=== PATIENT | female | born 1960 | race African-American/Black ===

== ENCOUNTER 2018-03-27 14:53 | Emergency (ER) | payer OTHER ==
[~2018-03-27] VITALS: Ht 175.3 cm; Wt 132.9 kg
[~2018-03-27 14:53] MED LIST: AMLO5TAB PO; ASPI81EC98 PO; CELE200C PO; EMPA10TA PO; GLIM2TAB2 PO; INSU100S10 SC; METF100028 PO; TRAM50TA3 PO
[2018-03-27 15:02] VITALS: BP 151/91
[2018-03-27 15:44] VITALS: BP 128/78
== END 2018-03-27 15:44 | disposition home or self-care (01) ==
LOC: MED 14:53
DX: M79.671 Pain in right foot (principal); E11.9 Type 2 diabetes mellitus without complications; I10 Essential (primary) hypertension; Z86.73 Personal history of transient ischemic attack (TIA), and cerebral infarction without residual deficits; Z79.4 Long term (current) use of insulin; Z79.82 Long term (current) use of aspirin; Z79.899 Other long term (current) drug therapy; Z88.5 Allergy status to narcotic agent
CPT/HCPCS: 73630; 99283; Q0092